=== PATIENT | male | born 1995 | race Two or more races ===

== ENCOUNTER 2020-01-27 07:16 | Emergency (ER) | payer SELFPAY ==
[~2020-01-27] VITALS: Ht 180.3 cm; Wt 66.6 kg
--- NOTE | 2020-01-27 07:36 | NUR ---
PT STATES N/V X2 DAYS WELL SUBJECTIVE FEVER AT HOME. PT STATES HE HAS NOT VOMITED SINCE LAST NIGHT. STATES HE IS FEELING BETTER, BUT STILL HAS NAUSEA. PT PLACED ON MONITORS, VSS. WILL FOLLOW ORDERS.
--- NOTE | 2020-01-27 08:22 | NUR ---
PT RESTING IN BED, AWAITING LAB RESULTS. NO DISTRESS. CALL LIGHT IN REACH. CONT TO MONITOR.
[2020-01-27 08:33] LABS: ALANINE AMINOTRANSFERASE 21 U/L (12-78); ALBUMIN 3.1 g/dL (3.4-5.0); ANION GAP 7 mmol/L (5-15); CHLORIDE 103 mmol/L (98-107); CREATININE 0.89 mg/dL (0.7-1.3)
[2020-01-27 08:36] LABS: ALKALINE PHOSPHATASE 92 U/L (45-117); BILIRUBIN,TOTAL 0.5 mg/dL (0.2-1.0); TOTAL PROTEIN 7.6 g/dL (6.4-8.2)
[2020-01-27 08:41] LABS: BASOPHILS # (AUTO) 0.03 x10^3/uL (0-0.1); BASOPHILS % (AUTO) 0 % (0-1); EOSINOPHILS % (AUTO) 0 % (1-7); LYMPHOCYTES # (AUTO) 1.19 x10^3/uL (1-3.4); LYMPHOCYTES % (AUTO) 12 % (22-44); MD NO; MEAN CORPUSCULAR HEMOGLOBIN 32.4 pg (27.5-34.5); MEAN CORPUSCULAR HGB CONC 34.4 g/dL (33.2-36.2); MEAN CORPUSCULAR VOLUME 94.2 fL (81-97); MEAN PLATELET VOLUME 9.8 fL (7.4-10.4); MONOCYTES # (AUTO) 0.77 x10^3/uL (0.2-0.8); MONOCYTES % (AUTO) 8 % (2-9); NEUTROPHILS # (AUTO) 7.86 x10^3/uL (1.8-6.8); NEUTROPHILS % (AUTO) 80 % (42-75); PLATELET COUNT 141 x10^3/uL (130-400); RED BLOOD COUNT 4.42 x10^6/uL (4.38-5.82); RED CELL DISTRIBUTION WIDTH 12.8 % (9.4-14.8)
--- NOTE | 2020-01-27 08:56 | NUR ---
PER ERMD, PT OK FOR D/C. PT VERBALIZED UNDESTANDING OF D/C INSTRUCTIONS, HAS STEADY GAIT UPON D/C.
[2020-01-27 08:57] VITALS: BP 117/67
== END 2020-01-27 09:00 | disposition home or self-care (01) ==
LOC: ED 07:58
DX: R11.2 Nausea with vomiting, unspecified (principal); R10.9 Unspecified abdominal pain; R50.9 Fever, unspecified
CPT/HCPCS: 36415; 80053; 83690; 85025; 99283